=== PATIENT | female | born 1950 | race Caucasian/White ===

== ENCOUNTER 2016-10-26 07:05 | Day surgery (SDC) | payer MEDICARE, BC ==
--- NOTE | 2016-10-18 10:17 | HP ---
Chief Complaint - Chief Complaint Date of Service: 10/18/16 Chief Complaint: need a colonoscopy History of Present Illness: 66 year old female who had a colonoscopy about 12 years ago. It was normal, she says. No recent bowel habit changes, no blood in stools, and no family history of colon cancer. No night sweats, LN enlargement and she has lost weight intentionally over the past year. - Patient's Past Medical History Patient History - Medical: GERD Patient History - Cardiac/Respiratory: Hypertension, Hyperlipidemia Patient History - Surgical Procedures: - 1977, Other - eye bilateral Patient History - Other: None LMP (females 10-50): Menopausal - Family History Family History:: no untoward family reactions to anesthesia, no familial bleeding tendencies, no family history of clotting disorders - Family History Mother Family History - Medical: Family History - Cancer: Lung Father Family History - Medical: Family History - Cardiac/Respiratory: Coronary Heart Disease - Social History Living Situations: alone Abuse History: No History of abuse Psych History: No pertinent hx Does anyone smoke in the home?: No Smoking Status: Never smoker Alcohol Use: rarely Drug Use: none - Immunizations Immunizations Up to Date: No Hx Pneumococcal Vaccination: Yes History of Influenza Vaccine: No Review Of Systems (GEN) - Review of Systems Generalized/Overall Review: Present: Weight loss - intentional 25#. Absent: Chills, Malaise, Fatigue EENTM: Absent: Tearing, Nose Congestion, Throat Pain, Throat Swelling Respiratory: Absent: Cough, Shortness of Breath, Wheezing Cardiac: Absent: Chest Pain, Edema, Syncope Abdominal: Absent: Nausea, Vomiting, Abdominal Pain, Constipation, Diarrhea, Bright blood from rectum Genitourinary: Absent: Burning, Itching, Urgency, Frequency Musculoskeletal: Absent: Joint Pain, Back Pain, Joint Swelling Neurological: Present: Anxiety. Absent: Headache, Depressed, Emotional Problems , Numbness, Tingling, Weakness Skin: Present: Bruising. Absent: Dryness, Lesions Endocrine: Absent: Intolerance to Cold Allergies/Adverse Reactions: Allergies Allergy/AdvReac Type Severity Reaction Status Date / Time Sulfa (Sulfonamide Allergy Mild Unverified 02/14/13 13:30 Antibiotics) Home Medications: HOME MEDICATIONS Aspirin [Aspirin EC] 81 mg PO DAILY 10/18/16 [Last Taken Unknown] Biotin 2,500 mcg PO DAILY 10/18/16 [Last Taken Unknown] Multivit with Calcium,Iron,Min [One Daily Women's] 1 each PO DAILY 10/18/16 [ Last Taken Unknown] Omeprazole 40 mg PO DAILY 10/18/16 [Last Taken Unknown] Simvastatin [Zocor] 20 mg PO DAILY 10/18/16 [Last Taken Unknown] Triamterene/Hydrochlorothiazid [Triamterene-Hctz 50-25 mg Cap] 1 each PO DAILY 10/18/16 [Last Taken Unknown] Exam - Exam Vital Signs: Vital Signs - Last Taken Temp 36.5 Pulse 80 Resp BP 135/80 10/18/16 Pulse Ox Ht 5'5 Wt 199 Constitutional: Present: Alert, Oriented x3, Cooperative, Well developed, Well nourished, No distress, Overweight ENT Exam: Present: normal ENT inspection, hearing grossly normal Eye Exam: bilateral eye: normal inspection Breasts: Present: Exam deferred Respiratory: Present: chest non-tender, lungs clear, normal breath sounds, no respiratory distress, no accessory muscle use Cardiovascular/Chest: Present: normal peripheral pulses, regular rate, rhythm, no edema, no gallop, no murmur Abdomen: Present: Normal bowel sounds, soft, nontender, nondistended, no hepatospenomegaly /Rectal: Present: Exam deferred Extremity: Present: normal range of motion, non-tender, normal inspection, no pedal edema Skin Exam: Present: normal color, warm/dry Neurologic: Present: no motor/sensory deficits, alert, normal mood/affect, oriented x 3 Appearance: Present: appropriate appearance, appropriate insight, neat, no memory impairment Eye contact: Present: cooperative, good eye contact, normal speech Thoughts: Present: normal thought pattern, no apparent hallucination Assessment/Plan - Narrative Narrative: Patient needs a colonoscopy. The risks and benefits were discussed. Booklet reviewed and given to patient. Prep discussed. Consent signed. Scheduled for next week. Her GERD is well controlled and she does not wish an EGD. - Assessment/Plan (1) Screening for colon cancer Problem: Acute (2) HTN (hypertension) Problem: Chronic (3) GERD (gastroesophageal reflux disease) Problem: Chronic Qualifiers: Esophagitis presence: esophagitis presence not specified Qualified Code(s) : K21.9 - Gastro-esophageal reflux disease without esophagitis
[~2016-10-26 07:05] MED LIST: RINGERS SOLUTION,LACTATED 1,000 ML IV PRN
[2016-10-26] MEDS ORDERED: RINGERS SOLUTION,LACTATED 1,000 ML IV PRN (08:08)
--- NOTE | 2016-10-26 08:11 | OR ---
Operative Report - Dictated Report Narrative: DATE OF PROCEDURE: 10/26/2016 PREOPERATIVE DIAGNOSIS: #1 Screening colonoscopy POSTOPERATIVE DIAGNOSIS: #1 Screening colonoscopy OPERATION: Colonoscopy SURGEON: Maximo Baird M.D. [facility] ANESTHESIA : Zuleika Lynn CRNA sedation INDICATIONS: This is 66 year old female who presents for a screening colonoscopy. I have discussed the risks, benefits, indications, and contraindications for colonoscopy with the possibility of biopsy and/or polypectomy. She understands, agrees, and wishes to proceed. She has undergone a SUPREP and has tolerated it well. PROCEDURE: The patient was brought to the operating theater and placed into the left lateral decubitus position. The patient underwent sedation per anesthesia , and a digital rectal exam was performed. This was noted to be unremarkable. The patient was noted to have no internal or external hemorrhoids. The Olympus video colonoscope was introduced and advanced into the rectum. The rectum was normal in appearance. The scope was then advanced through the sigmoid, where no diverticular disease was noted. The scope was then advanced to the cecum using standard reduction techniques. The ileocecal valve was noted. The prep appeared to be excellent with a [place] prep score of 9. The scope was withdrawn slowly as the ascending, transverse, descending, and sigmoid colon were examined in a circumferential fashion. The scope was brought back into the rectum where it was retroflexed in the lower rectum was examined. The air was decompressed, and the scope was then removed. Withdrawal time was 5 minutes. POSTOPERATIVE CONDITION: The patient was awakened and taken to the ambulatory surgery center in good condition. No complications were encountered. FINDINGS: Negative colonoscopy Specimens: None EBL: 0 The findings were discussed with the patient. I recommend a follow-up colonoscopy in 10 years for screening purposes.
[2016-10-26 09:25] VITALS: BP 148/84
== END 2016-10-26 07:06 | disposition home or self-care (01) ==
LOC: AMB 07:05
PROVIDERS: ATTEND Surgery
PROC: 0DJD8ZZ Inspection of Lower Intestinal Tract, Via Natural or Artificial Opening Endoscopic (ICD-10-PCS; principal; 2016-10-26 07:50)
DX: Z12.11 Encounter for screening for malignant neoplasm of colon (principal); I10 Essential (primary) hypertension; E78.5 Hyperlipidemia, unspecified; K21.9 Gastro-esophageal reflux disease without esophagitis; Z68.33 Body mass index [BMI] 33.0-33.9, adult